=== PATIENT | female | born 1995 | race Caucasian/White ===

== ENCOUNTER 2020-11-12 17:01 | Emergency (ER) | payer OTHER ==
[2020-11-12 17:46] VITALS: BP 129/83; PULSE 62; RESP 18; TEMP 98.4
--- NOTE | 2020-11-12 19:08 | ED ---
General Adult HPI - General Chief complaint: Needlestick/Exposure Stated complaint: [facility]-exposure Time Seen by Provider: 11/12/20 19:01 Source: patient, RN notes reviewed Mode of arrival: ambulatory Limitations: no limitations - History of Present Illness Initial comments: 25-year-old female presents emergency from chief complaint of body fluid exposure. Patient states his happened 6 days ago at her dental clinic she states she was putting instruments in the cleaning solution states that splash. Patient states that something splash in her face she states that she's been sent around from my expressed to S to ophthalmologists and now to the emergency department. Patient states she is just here for testing no other complaints. - Related Data Allergies Allergy/AdvReac Type Severity Reaction Status Date / Time No Known Allergies Allergy Verified 11/12/20 17:45 Review of Systems ROS Statement: Those systems with pertinent positive or pertinent negative responses have been documented in the HPI. ROS Other: All systems not noted in ROS Statement are negative. Past Medical History Past Medical History: No Reported History History of Any Multi-Drug Resistant Organisms: None Reported Past Surgical History: No Surgical Hx Reported Past Psychological History: No Psychological Hx Reported Smoking Status: Never smoker Past Alcohol Use History: None Reported Past Drug Use History: None Reported General Exam Limitations: no limitations General appearance: alert, in no apparent distress Head exam: Present: atraumatic, normocephalic, normal inspection Eye exam: Present: normal appearance, PERRL, EOMI. Absent: scleral icterus, conjunctival injection, periorbital swelling Neck exam: Present: normal inspection. Absent: tenderness, meningismus, lymphadenopathy Respiratory exam: Present: normal lung sounds bilaterally. Absent: respiratory distress, wheezes, rales, rhonchi, stridor Cardiovascular Exam: Present: regular rate, normal rhythm, normal heart sounds. Absent: systolic murmur, diastolic murmur, rubs, gallop, clicks GI/Abdominal exam: Present: soft, normal bowel sounds. Absent: distended, tenderness, guarding, rebound, rigid Course Vital Signs 11/12/20 17:41 Temperature 98.4 F Pulse Rate 62 Respiratory 18 Rate Blood Pressure 129/83 Medical Decision Making - Medical Decision Making Body fluid post exposure was labs were drawn patient does not require any or want any HIV prophylaxis we discharged in stable condition Disposition Clinical Impression: Exposure to blood or body fluid Disposition: HOME SELF-CARE Condition: Stable Instructions (If sedation given, give patient instructions): Body Substance Exposure (ED) Additional Instructions: Please return to the Emergency Department if symptoms worsen or any other concerns. Is patient prescribed a controlled substance at d/c from ED?: No Referrals: Johan Kimbrough MD [Primary Care Provider] - 1-2 days Time of Disposition: 19:08
[2020-11-13 04:48] LABS: HIV 2 AB Non-Reactive (Non-Reactive); HIV AB P24 Non-Reactive (Non-Reactive); HIV P24 AG Non-Reactive (Non-Reactive)
[2020-11-13 10:37] LABS: Hepatitis B Surface AB- Quant <3.5 mIU/mL; Hepatitis B Surface Antibody Non-Reactive (Non-Reactive); Hepatitis B Surface Antigen Non-Reactive (Non-Reactive); Hepatitis C IgG Antibody Non-Reactive (Non-Reactive)
== END 2020-11-12 19:43 | disposition home or self-care (01) ==
LOC: EC 17:01
DX: Z77.21 Contact with and (suspected) exposure to potentially hazardous body fluids (principal)
CPT/HCPCS: 36415; 86706; 86803; 87340; 87390; 99283